=== PATIENT | female | born 1985 | race Caucasian/White ===

== ENCOUNTER → 2020-09-08 | Outpatient (CLI) | payer OTHER ==
[~2020-09-08] MED LIST: ASCO500T8 PO; MULT-658 PO
[2020-09-08 16:39] LABS: BASOPHILS % (AUTO) 1 % (0-1); EOSINOPHILS % (AUTO) 2 % (1-7); LYMPHOCYTES % (AUTO) 41 % (22-44); MD NO; MEAN CORPUSCULAR HEMOGLOBIN 32.5 pg (27.0-34.8); MEAN CORPUSCULAR HGB CONC 34.1 g/dL (32.4-35.8); MEAN PLATELET VOLUME 9.1 fL (7.4-10.4); MONOCYTES % (AUTO) 7 % (2-9); NEUTROPHILS % (AUTO) 49 % (42-75); PLATELET COUNT 225 x10^3/uL (130-400); RED BLOOD COUNT 4.14 x10^6/uL (3.82-5.3); RED CELL DISTRIBUTION WIDTH 12.4 % (9.6-15.2)
== END | disposition home or self-care (01) ==
LOC: STAR 15:46
PROVIDERS: ATTEND Obstetrics & Gynecology
DX: Z01.818 Encounter for other preprocedural examination (principal); N93.9 Abnormal uterine and vaginal bleeding, unspecified
CPT/HCPCS: 36415; 84703; 85025

== ENCOUNTER 2020-09-15 09:29 | Day surgery (SDC) | payer OTHER ==
[~2020-09-15] VITALS: Ht 160 cm; Wt 63.0 kg
[2020-09-15 09:56] VITALS: BP 117/74
[2020-09-15] MEDS ORDERED: LACTATED RINGERS 1,000 ML IV SCH (10:00)
[2020-09-15] MEDS ORDERED: CHLORHEXIDINE 15 ML UDC MM ONE (10:00)
[2020-09-15 10:20] LABS: HCG UR SG 1.018 (1.003-1.030)
[2020-09-15] MEDS ORDERED: SILVER NITRATE STICK TP ONE (10:21)
[2020-09-15] MEDS ORDERED: BUPIVACAINE/PF 0.25% ONE (10:21)
[2020-09-15] MEDS ORDERED: MIDAZOLAM 1 MG/ML, 2ML ONE (10:33)
[2020-09-15] MEDS ORDERED: FENTANYL PF 250 MCG/5ML ONE (10:33)
[2020-09-15] MEDS ORDERED: DEXAMETHASONE 4 MG/ML, 5ML ONE (10:48)
[2020-09-15] MEDS ORDERED: KETOROLAC 30 MG/1 ML ONE (10:48)
[2020-09-15] MEDS ORDERED: PROPOFOL 10 MG/ML, 20ML ONE (10:48)
[2020-09-15] MEDS ORDERED: ONDANSETRON 2MG/ML, 2ML ONE (10:48)
[2020-09-15] MEDS ORDERED: FENTANYL PF 100 MCG/2ML IV PRN (11:00)
[2020-09-15] MEDS ORDERED: MEPERIDINE/PF 25MG/0.5ML IVPush PRN (11:00)
[2020-09-15] MEDS ORDERED: ONDANSETRON 2MG/ML, 2ML IVPush PRN (11:00)
[2020-09-15] MEDS ORDERED: hydrALAzine 20 MG/ML, 1ML IV PRN (11:00)
[2020-09-15] MEDS ORDERED: OXYcodone 5 MG/5 ML ORAL.SOL UDC PO PRN (11:00)
[2020-09-15] MEDS ORDERED: HYDROmorphone 1 MG/ML, 1ML INJ IVPush PRN (11:00)
[2020-09-15] MEDS ORDERED: PROMETHAZINE 25 MG/ML, 1ML IVPush PRN (11:00)
[2020-09-15] MEDS ORDERED: ACETAMINOPHEN 325 MG TABLET PO PRN (11:00)
[2020-09-15] MEDS ORDERED: LABETALOL 5MG/ML, 20ML IV PRN (11:00)
[2020-09-15] MEDS ORDERED: CEFAZOLIN 1,000 MG ONE ×2 (11:43)
== END 2020-09-15 14:25 | disposition home or self-care (01) ==
LOC: OUT 09:29
PROVIDERS: ATTEND Obstetrics & Gynecology
DX: N93.9 Abnormal uterine and vaginal bleeding, unspecified (principal); N92.0 Excessive and frequent menstruation with regular cycle; N84.0 Polyp of corpus uteri; Z20.822 Contact with and (suspected) exposure to COVID-19; Z79.899 Other long term (current) drug therapy; Z98.51 Tubal ligation status
CPT/HCPCS: 58558; 81025; 87635; 88305; J0690; J1100; J1885; J2250; J2405; J2704; J3010; J7120